=== PATIENT | male | born 2000 | race Caucasian/White ===

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

== ENCOUNTER 2021-01-21 19:14 | Inpatient (IN) | payer BC, OTHER ==
[~2021-01-21] VITALS: Ht 182.9 cm; Wt 60.2 kg
[~2021-01-21 19:14] MED LIST changes: -MELA3TAB12 PO; +MELA3TAB43 PO
[2021-01-21] MEDS ORDERED: IV RINGERS,LACTATED 1000ML 1,000 ML IV SCH (19:30)
[2021-01-21] MEDS ORDERED: cloNIDine HCL 0.1 MG TABLET PO ONE (19:30)
[2021-01-21] MEDS ORDERED: NALOXONE 2 MG/2 ML DISP.SYRIN. IV ONE (19:30)
[2021-01-21] MEDS ORDERED: NALOXONE 2 MG/2 ML DISP.SYRIN. ONE (19:30)
[2021-01-21 19:32] LABS: BASO # 0.2 x10^3/uL (0.0-0.2); BASO % 1 % (0-3); EOS % 0 % (0-3); HEMATOCRIT 44.3 % (39.0-53.0); HEMOGLOBIN 14.4 g/dL (13.0-17.5); LYMPH # 5.5 x10^3/uL (1.0-4.8); LYMPH % 22 % (24-48); MEAN CORPUSCULAR HEMOGLOBIN 30 pg (25-35); MEAN CORPUSCULAR HGB CONC 33 g/dL (31-37); MEAN CORPUSCULAR VOLUME 92 fL (79-100); MONO % 4 % (0-9); NEUT # 17.9 x10^3/uL (1.8-7.7); NEUT % 73 % (31-73); PLATELET COUNT 325 x10^3/uL (140-400); RED BLOOD COUNT 4.81 x10^6/uL (4.30-5.70); RED CELL DISTRIBUTION WIDTH 14.3 % (11.5-14.5); WHITE BLOOD COUNT 24.5 x10^3/uL (4.0-11.0)
--- NOTE | 2021-01-21 19:38 | PHYS DOC ---
Past Medical History Past Medical History: Anxiety, Depression Additional Past Medical Histor: ADD/ODD/Seperation Anxiety, Autism Spectrum Past Surgical History: No Surgical History Smoking Status: Light Tobacco Smoker Alcohol Use: None Drug Use: None General Adult EDM: Chief Complaint: OVERDOSE HPI: HPI: 20-year-old male with a history of opiate abuse presents the emergency department after an accidental overdose of an unknown amount of Percocet around 6 PM this evening. Patient states that he only took Percocet. Denies any further intoxicants. Patient was reportedly 54% on room air and had slow respirations consistent with his opioid toxicity. he was given 4 mg of Narcan in the field intranasally without effect, he was then given 1 mg of Narcan IV around 1850 with good effect on respirations. Secondary to the patient's clinical condition, he is a poor historian at this time. Review of Systems: Review of Systems: ROS is impossible to obtain secondary to the patient's critical condition Heart Score: C/O Chest Pain: No Family History: Family History: non contributory Current Medications: Current Medications Medications (Trade) Dose Ordered Sig/Alex Start Time Stop Time Status Last Admin Dose Admin Clonidine HCl (Catapres) 0.1 mg 1X ONCE 01/21/21 19:30 01/21/21 19:31 Naloxone HCl (NARCAN 2mg SYRINGE) 2 mg STK-MED ONCE 01/21/21 19:30 01/21/21 19:30 DC Ringer's Solution 1,000 ml @ 1,000 mls/hr Q1H 01/21/21 19:30 01/21/21 20:29 Allergies: Allergies: Allergies Coded Allergies Type Severity Reaction Last Updated Verified No Known Drug Allergies 05/14/13 No Physical Exam: PE: Constitutional: Drowsy appearing, slow respirations. Trembling. HENT:pupils 4 mm and reactive Eyes: PERRLA, EOMI, conjunctiva normal, no discharge. Neck: Normal range of motion, supple, no stridor. Cardiovascular: Tachycardic, 2+ radial pulses Lungs & Thorax: No respiratory distress, symmetrical expansion. Bilateral breath sounds clear to auscultation Abdomen: Soft, no tenderness Skin: Warm, dry. Extremities: No tenderness, no cyanosis, ROM intact, no edema. Cold extremities. Neurologic: Normal motor function, normal sensory function, no focal deficits noted. Non ataxic gait. GCS 13. Current Patient Data: Labs: Laboratory Tests Test 01/21/21 19:20 01/21/21 21:15 White Blood Count 24.5 x10^3/uL (4.0-11.0) Red Blood Count 4.81 x10^6/uL (4.30-5.70) Hemoglobin 14.4 g/dL (13.0-17.5) Hematocrit 44.3 % (39.0-53.0) Mean Corpuscular Volume 92 fL (79-100) Mean Corpuscular Hemoglobin 30 pg (25-35) Mean Corpuscular Hemoglobin Concent 33 g/dL (31-37) Red Cell Distribution Width 14.3 % (11.5-14.5) Platelet Count 325 x10^3/uL (140-400) Neutrophils (%) (Auto) 73 % (31-73) Lymphocytes (%) (Auto) 22 % (24-48) Monocytes (%) (Auto) 4 % (0-9) Eosinophils (%) (Auto) 0 % (0-3) Basophils (%) (Auto) 1 % (0-3) Neutrophils # (Auto) 17.9 x10^3/uL (1.8-7.7) Lymphocytes # (Auto) 5.5 x10^3/uL (1.0-4.8) Monocytes # (Auto) 1.0 x10^3/uL (0.0-1.1) Eosinophils # (Auto) 0.0 x10^3/uL (0.0-0.7) Basophils # (Auto) 0.2 x10^3/uL (0.0-0.2) Segmented Neutrophils % 64 % (35-66) Band Neutrophils % 5 % (0-9) Lymphocytes % 25 % (24-48) Monocytes % 5 % (0-10) Metamyelocytes % 1 % (0-0) Platelet Estimate Adequate (ADEQUATE) Sodium Level 141 mmol/L (136-145) Potassium Level 4.0 mmol/L (3.5-5.1) Chloride Level 96 mmol/L (98-107) Carbon Dioxide Level 21 mmol/L (21-32) Anion Gap 24 (6-14) Blood Urea Nitrogen 14 mg/dL (8-26) Creatinine 1.5 mg/dL (0.7-1.3) Estimated GFR (Cockcroft-Gault) 59.7 BUN/Creatinine Ratio 9 (6-20) Glucose Level 303 mg/dL (70-99) Calcium Level 9.2 mg/dL (8.5-10.1) Total Bilirubin 0.3 mg/dL (0.2-1.0) Aspartate Amino Transf (AST/SGOT) 39 U/L (15-37) Alanine Aminotransferase (ALT/SGPT) 30 U/L (16-63) Alkaline Phosphatase 75 U/L (46-116) Total Protein 9.0 g/dL (6.4-8.2) Albumin 5.0 g/dL (3.4-5.0) Albumin/Globulin Ratio 1.3 (1.0-1.7) Salicylates Level 3.3 mg/dL (2.8-20.0) Salicylate Last Dose Date Salicylate Last Dose Time Acetaminophen Level < 2 mcg/ml (10-30) Acetaminophen Last Dose Date Acetaminophen Last Dose Time Ethyl Alcohol Level < 10 mg/dL (0-10) SARS-CoV-2 Antigen (Rapid) Negative (NEGATIVE) Vital Signs: Vital Signs Date Time Temp Pulse Resp B/P (MAP) Pulse Ox O2 Delivery O2 Flow Rate FiO2 01/21/21 19:14 97.4 107 16 151/60 (90) 100 Nasal Cannula 2.0 97.4 Radiology/Procedures: Radiology/Procedures: PROCEDURE: PORTABLE CHEST 1V XR CHEST 1V CLINICAL INDICATIONS: Reason: hypoxic / Spl. Instructions: / History: COMPARISON: None available. Findings: No acute lung infiltrate or pleural effusion or pulmonary edema or lung mass or pneumothorax is seen. The heart size, pulmonary vasculature, mediastinum and both zach are unremarkable. IMPRESSION: No acute radiographic abnormality is seen. Electronically signed by: Zohaib Chávez MD (01/21/2021 8:19 PM) Course & Med Decision Making: Course & Med Decision Making Patient was given 1 mg of Narcan IV in the ED with good improvement for about 5 minutes, the patient then began to get more drowsy, lethargic and slowed his respirations. He remained with good O2 sats on nasal cannula. Decision was made to start a Narcan drip. First acetaminophen level was negative, but we will obtain a 4-hour level due to his unknown Percocet ingestion. Patient will be admitted to the ICU under Dr. Kauffman. Critical care time was 45 minutes which includes time at bedside, frequent reassessments, critical illness management, spent in discussion of patient's care with specialists and/or family members, with interpretation of laboratory and/or radiological studies and is exclusive of procedures. My Orders - KEERTHI HOLT DO Procedure Category Date Status Time Cbc W Autodiff LAB 01/21/21 In Process 19:19 Comprehensive LAB 01/21/21 Complete Metabolic Panel 19:19 Ethanol LAB 01/21/21 Complete 19:19 Drugs Of Abuse Ur LAB 01/21/21 Logged 19:19 Portable Chest 1v RAD 01/21/21 Taken 19:19 Iv Ringers,Lactated PHA 01/21/21 In Process 1000ml (Iv Lactated 19:30 Acetaminophen LAB 01/21/21 Complete 19:19 Salicylate LAB 01/21/21 Complete 19:19 Clonidine Hcl PHA 01/21/21 Complete (Catapres) 19:30 Sars Cov2 (Jenna) LAB 01/21/21 Logged 19:24 Sars Antigen Megha Rapid LAB 01/21/21 Logged 19:24 Naloxone 2mg Syringe PHA 01/21/21 Complete (Narcan 2mg Syringe 19:30 Manual Differential LAB 01/21/21 In Process 19:20 Naloxone 2mg Syringe PHA 01/21/21 In Process (Narcan 2mg Syringe 20:00 Acetaminophen LAB 01/21/21 Logged 22:00 Er Bridge Order ADT 01/21/21 Transmitted 20:06 Code Status CODE 01/21/21 Transmitted 20:06 Vital Signs, Per Unit CLARIBEL 01/21/21 In Process Protocol 20:06 Nothing By Mouth DIET 01/22/21 Transmitted Breakfast Bedrest CLARIBEL 01/21/21 In Process 20:06 Cbc W Autodiff LAB 01/22/21 Verified 06:00 Basic Metabolic Panel LAB 01/22/21 Verified 06:00 Ondansetron Pf PHA 01/21/21 Logged (Zofran) 20:15 Fuel Cell Systems Engineer CLARIBEL 01/21/21 In Process 20:06 Vital Signs Q4h CLARIBEL 01/21/21 In Process 20:06 Departure Departure Impression: Primary Impression: Opioid overdose Additional Impression: Hypoxia Disposition: ADMITTED INPATIENT (ICU) Admitting Physician: SEVERO (Jamari) Condition: CRITICAL Referrals: KRUNAL ORELLANA MD (PCP) KEERTHI HOLT DO Jan 21, 2021 19:38
[2021-01-21 19:45] LABS: CALCIUM 9.2 mg/dL (8.5-10.1); CREATININE 1.5 mg/dL (0.7-1.3); GFR 59.7
[2021-01-21 19:49] LABS: ACETAMIN < 2 mcg/ml (10-30); ETHANOL < 10 mg/dL (0-10); SALIC 3.3 mg/dL (2.8-20.0)
[2021-01-21 19:50] LABS: ALBUMIN/GLOBULIN RATIO 1.3 (1.0-1.7); TOTAL BILIRUBIN 0.3 mg/dL (0.2-1.0)
[2021-01-21] MEDS ORDERED: NALOXONE 2mg SYRINGE 4 MG in IV NORMAL SALINE 250ML 250 ML IV PRN (20:00)
--- NOTE | 2021-01-21 20:03 | PDOC1 ---
History and Physical Date of Service: DOS: DATE: 01/21/21 TIME: 20:03 Chief Complaint: Problems: (1) Hypoxia (2) Opioid overdose Chief Complain: Overdose History of Present Illness: HPI: HPI from ED 20-year-old male with a history of opiate abuse presents the emergency department after an accidental overdose of an unknown amount of Percocet around 6 PM this evening. Patient states that he only took Percocet. Denies any further intoxicants. Patient was reportedly 54% on room air and had slow res pirations consistent with his opioid toxicity. he was given 4 mg of Narcan in the field intranasally without effect, he was then given 1 mg of Narcan IV around 1850 with good effect on respirations. Secondary to the patient's clinical condition, he is a poor historian at this time. I evaluated the patient he was more alert but still somewhat lethargic. Still prefer to monitor in ICU. He however was able to reports to me that this overdose was not intentional. He thought he was taking just Percocet but thinks it was laced with fentanyl. Denying any suicidal or homicidal ideation Past Medical/Surgical History: PMH/PSH: Anxiety depression ADD Allergies: Allergies: Coded Allergies: No Known Drug Allergies (Unverified , 05/14/13) Family History: Family History: Review with patient no known Social History: Social History: Occasional tobacco use denies alcohol use. He abuses opioids Current Medications: Current Medications Current Medications Ringer's Solution 1,000 ml @ 1,000 mls/hr Q1H IV Last administered on 01/21/21at 19:35; Start 01/21/21 at 19:30; Stop 01/21/21 at 20:29 Clonidine HCl (Catapres) 0.1 mg 1X ONCE PO ; Start 01/21/21 at 19:30; Stop 01/21/21 at 19:31; Status DC Naloxone HCl (NARCAN 2mg SYRINGE) 1 mg 1X ONCE IV Last administered on 01/21/21at 19:37; Start 01/21/21 at 19:30; Stop 01/21/21 at 19:31; Status DC Naloxone HCl (NARCAN 2mg SYRINGE) 2 mg STK-MED ONCE .ROUTE ; Start 01/21/21 at 19:30; Stop 01/21/21 at 19:30; Status DC Naloxone HCl 4 mg/ Sodium Chloride 254 ml @ 0 mls/hr CONT PRN IV PER PROTOCOL; Start 01/21/21 at 20:00; Status UNV Active Scripts Active Reported Trileptal (Oxcarbazepine) 600 Mg Tablet 1 Tab PO HS Trileptal (Oxcarbazepine) 300 Mg Tablet 1 Tab PO Q AM Melatonin 3 Mg Tab.rapdis 1 Tab PO HS Focalin (Dexmethylphenidate Hcl) 10 Mg Tablet 1 Tab PO Q AM Kapvay (Clonidine Hcl) 0.1 Mg Tab.er.12h 1 Tab PO BID ROS: Review of Systems Review of System Unless noted in HPI 14 point review of systems was negative Physical Exam: Vital Signs: Vital Signs Date Time Temp Pulse Resp B/P (MAP) Pulse Ox O2 Delivery O2 Flow Rate FiO2 01/21/21 19:14 97.4 107 16 151/60 (90) 100 Nasal Cannula 2.0 97.4 Physcial Exam: GEN: No apparent distress. Alert and oriented HEENT: Normal cephalic, atraumatic, external auditory canals are patent EYES: Extraocular muscles are intact, pupil are equally round and reactive to light and accommodation MUSCULOSKELETAL: Well developed , well nourished, good range of motion ENDOCRINE: No thyromegaly was palpated LYMPHATICS: No cervical chain or axillary nodes were noted HEMATOPOIETIC: No bruising NECK: Supple, no JVD, no thyromegaly was noted LUNGS: Clear to auscultation in all lung reid without rhonchi or wheezing HEART: RRR, S!, S2 present. Peripheral pulses intact, no obvious murmurs noted ABDOMEN: Soft, nontender. Positive bowel sounds, no organomegaly, normal bowel sounds EXTREMITIES: Without clubbing, cyanosis, or edema. Pedal pulses intact. Ne gative Homans sign NEUROLOGIC: Normal speech and tone. A&O x 3, moves all extremities, no obvious focal deficits PSYCHIATRIC: Normal affect, normal mood. Stable SKIN: No ulcerations or rashes, good skin turgor, no jaundice VASCULAR: Good capillary refill, neurovascular bundle appears to be intact Labs: Labs: Laboratory Tests Test 01/21/21 19:20 White Blood Count 24.5 x10^3/uL (4.0-11.0) Red Blood Count 4.81 x10^6/uL (4.30-5.70) Hemoglobin 14.4 g/dL (13.0-17.5) Hematocrit 44.3 % (39.0-53.0) Mean Corpuscular Volume 92 fL (79-100) Mean Corpuscular Hemoglobin 30 pg (25-35) Mean Corpuscular Hemoglobin Concent 33 g/dL (31-37) Red Cell Distribution Width 14.3 % (11.5-14.5) Platelet Count 325 x10^3/uL (140-400) Neutrophils (%) (Auto) 73 % (31-73) Lymphocytes (%) (Auto) 22 % (24-48) Monocytes (%) (Auto) 4 % (0-9) Eosinophils (%) (Auto) 0 % (0-3) Basophils (%) (Auto) 1 % (0-3) Neutrophils # (Auto) 17.9 x10^3/uL (1.8-7.7) Lymphocytes # (Auto) 5.5 x10^3/uL (1.0-4.8) Monocytes # (Auto) 1.0 x10^3/uL (0.0-1.1) Eosinophils # (Auto) 0.0 x10^3/uL (0.0-0.7) Basophils # (Auto) 0.2 x10^3/uL (0.0-0.2) Sodium Level 141 mmol/L (136-145) Potassium Level 4.0 mmol/L (3.5-5.1) Chloride Level 96 mmol/L (98-107) Carbon Dioxide Level 21 mmol/L (21-32) Anion Gap 24 (6-14) Blood Urea Nitrogen 14 mg/dL (8-26) Creatinine 1.5 mg/dL (0.7-1.3) Estimated GFR (Cockcroft-Gault) 59.7 BUN/Creatinine Ratio 9 (6-20) Glucose Level 303 mg/dL (70-99) Calcium Level 9.2 mg/dL (8.5-10.1) Total Bilirubin 0.3 mg/dL (0.2-1.0) Aspartate Amino Transf (AST/SGOT) 39 U/L (15-37) Alanine Aminotransferase (ALT/SGPT) 30 U/L (16-63) Alkaline Phosphatase 75 U/L (46-116) Total Protein 9.0 g/dL (6.4-8.2) Albumin 5.0 g/dL (3.4-5.0) Albumin/Globulin Ratio 1.3 (1.0-1.7) Salicylates Level 3.3 mg/dL (2.8-20.0) Salicylate Last Dose Date Salicylate Last Dose Time Acetaminophen Level < 2 mcg/ml (10-30) Acetaminophen Last Dose Date Acetaminophen Last Dose Time Ethyl Alcohol Level < 10 mg/dL (0-10) Laboratory Tests Test 01/21/21 19:20 White Blood Count 24.5 x10^3/uL (4.0-11.0) Red Blood Count 4.81 x10^6/uL (4.30-5.70) Hemoglobin 14.4 g/dL (13.0-17.5) Hematocrit 44.3 % (39.0-53.0) Mean Corpuscular Volume 92 fL (79-100) Mean Corpuscular Hemoglobin 30 pg (25-35) Mean Corpuscular Hemoglobin Concent 33 g/dL (31-37) Red Cell Distribution Width 14.3 % (11.5-14.5) Platelet Count 325 x10^3/uL (140-400) Neutrophils (%) (Auto) 73 % (31-73) Lymphocytes (%) (Auto) 22 % (24-48) Monocytes (%) (Auto) 4 % (0-9) Eosinophils (%) (Auto) 0 % (0-3) Basophils (%) (Auto) 1 % (0-3) Neutrophils # (Auto) 17.9 x10^3/uL (1.8-7.7) Lymphocytes # (Auto) 5.5 x10^3/uL (1.0-4.8) Monocytes # (Auto) 1.0 x10^3/uL (0.0-1.1) Eosinophils # (Auto) 0.0 x10^3/uL (0.0-0.7) Basophils # (Auto) 0.2 x10^3/uL (0.0-0.2) Sodium Level 141 mmol/L (136-145) Potassium Level 4.0 mmol/L (3.5-5.1) Chloride Level 96 mmol/L (98-107) Carbon Dioxide Level 21 mmol/L (21-32) Anion Gap 24 (6-14) Blood Urea Nitrogen 14 mg/dL (8-26) Creatinine 1.5 mg/dL (0.7-1.3) Estimated GFR (Cockcroft-Gault) 59.7 BUN/Creatinine Ratio 9 (6-20) Glucose Level 303 mg/dL (70-99) Calcium Level 9.2 mg/dL (8.5-10.1) Total Bilirubin 0.3 mg/dL (0.2-1.0) Aspartate Amino Transf (AST/SGOT) 39 U/L (15-37) Alanine Aminotransferase (ALT/SGPT) 30 U/L (16-63) Alkaline Phosphatase 75 U/L (46-116) Total Protein 9.0 g/dL (6.4-8.2) Albumin 5.0 g/dL (3.4-5.0) Albumin/Globulin Ratio 1.3 (1.0-1.7) Salicylates Level 3.3 mg/dL (2.8-20.0) Salicylate Last Dose Date Salicylate Last Dose Time Acetaminophen Level < 2 mcg/ml (10-30) Acetaminophen Last Dose Date Acetaminophen Last Dose Time Ethyl Alcohol Level < 10 mg/dL (0-10) Assessment/Plan Assessment/Plan Opiate overdose, history depression anxiety suspect seizure disorder given home meds. -Patient reports accidental overdose of opioids today. Known history of depression anxiety -Denies any suicidal homicidal ideation -No response to nasal Narcan in the field. Responded to IV Narcan. In emergency room concerned patient may need Narcan drip will admit to ICU. Narcan drip ordered if needed -PAT team consult -Home meds resumed as indicated -DVT prophylaxis -Diet as tolerated this patient is now more alert I spent 42 minutes of critical care time on this patient. Justifications for Admission Other Justification CHERI WU MD Jan 21, 2021 20:03
[2021-01-21] MEDS ORDERED: ONDANSETRON PF 4 MG/2 ML VIAL. IVP PRN ×2 (20:15→22:00)
--- NOTE | 2021-01-21 20:22 | RAD ---
XR CHEST 1V CLINICAL INDICATIONS: Reason: hypoxic / Spl. Instructions: / History: COMPARISON: None available. Findings: No acute lung infiltrate or pleural effusion or pulmonary edema or lung mass or pneumothora x is seen. The heart size, pulmonary vasculature, mediastinum and both zach are unremarkable. IMPRESSION: No acute radiographic abnormality is seen. Electronically signed by: Zohaib Chávez MD (01/21/2021 8:19 PM) [id number]
[2021-01-21 20:30] LABS: % BANDS 5 % (0-9); % LYMPHS 25 % (24-48); % METAS 1 % (0-0); % MONOS 5 % (0-10); % SEGS 64 % (35-66); PLT ESTIMATE ADEQUATE (ADEQUATE)
[2021-01-21 21:45] VITALS: BP 117/60
[2021-01-21] MEDS ORDERED: DEXMETHYLPHENIDATE HCL PO SCH (21:45)
[2021-01-21 22:00] VITALS: BP 118/55
[2021-01-21] MEDS ORDERED: CALCIUM CARBONATE 500 MG TAB.CHEW PO PRN (22:00)
[2021-01-21] MEDS ORDERED: ACETAMINOPHEN 325 MG TABLET. PO PRN (22:00)
[2021-01-21] MEDS ORDERED: 0.9 % SODIUM CHLORIDE 10 ML DISP.SYRIN. IV PRN (22:00)
[2021-01-21 22:15] VITALS: BP 118/55
--- NOTE | 2021-01-21 22:22 | NUR ---
admit from ER. Patient was found by friend in backseat of car. He was unable to wake him. EMS called. Narcan given. Narcan repeated in ER. patient is a&ox4. Sitting up answering questions appropriately. patient states he took 2 Percocet which is what he normally takes. After patient was interviewed by police. The concern is patient may have taken fentanyl.
[2021-01-21 22:30] VITALS: BP 108/56
[2021-01-21 22:30] LABS: ACETAMIN < 2 mcg/ml (10-30)
[2021-01-21 23:00] VITALS: BP 100/49
[2021-01-22 01:00] VITALS: BP 102/52
[2021-01-22 03:00] VITALS: BP 105/46
[2021-01-22 04:59] LABS: BASO % 0 % (0-3); EOS % 0 % (0-3); HEMATOCRIT 36.4 % (39.0-53.0); HEMOGLOBIN 12.1 g/dL (13.0-17.5); LYMPH # 2.8 x10^3/uL (1.0-4.8); LYMPH % 20 % (24-48); MEAN CORPUSCULAR HEMOGLOBIN 29 pg (25-35); MEAN CORPUSCULAR HGB CONC 33 g/dL (31-37); MEAN CORPUSCULAR VOLUME 88 fL (79-100); MONO # 0.5 x10^3/uL (0.0-1.1); MONO % 4 % (0-9); NEUT # 10.7 x10^3/uL (1.8-7.7); NEUT % 76 % (31-73); PLATELET COUNT 250 x10^3/uL (140-400); RED BLOOD COUNT 4.11 x10^6/uL (4.30-5.70); RED CELL DISTRIBUTION WIDTH 13.5 % (11.5-14.5); WHITE BLOOD COUNT 14.1 x10^3/uL (4.0-11.0)
[2021-01-22 05:12] LABS: CALCIUM 8.3 mg/dL (8.5-10.1); CREATININE 0.9 mg/dL (0.7-1.3); GFR 107.6; POTASSIUM 3.7 mmol/L (3.5-5.1)
--- NOTE | 2021-01-22 06:18 | PDOC ---
[employer] PROGRESS NOTE Date of Service DOS: DATE: 01/22/21 TIME: 06:13 Chief Complaint Chief Complaint Opiate overdose History depression anxiety Seizure disorder -Patient reports accidental overdose of opioids today. Known history of depression anxiety -Denies any suicidal homicidal ideation -No response to nasal Narcan in the field. Responded to IV Narcan. In emergency room concerned patient may need Narcan drip will admit to ICU. Narcan drip ordered if needed -PAT team consult -Home meds resumed as indicated -DVT prophylaxis -Diet as tolerated this patient is now more alert History of Present Illness History of Present Illness 20-year-old male with a history of opiate abuse presents the emergency department after an accidental overdose of an unknown amount of Percocet around 6 PM this evening. Patient states that he only took Percocet. Denies any further intoxicants. Patient was reportedly 54% on room air and had slow respirations consistent with his opioid toxicity. he was given 4 mg of Narcan in the field intranasally without effect, he was then given 1 mg of Narcan IV around 1849 with good effect on respirations. Secondary to the patient's clinical condition, he is a poor historian at this time. I evaluated the patient he was more alert but still somewhat lethargic. Still prefer to monitor in ICU. He however was able to reports to me that this overdose was not intentional. He thought he was taking just Percocet but thinks it was laced with fentanyl. Denying any suicidal or homicidal ideation. 01/22: Patient breathing comfortably om room air. No complaints this morning. He denies SI or intentional overdose. Denies HI. PAT has been consulted, however I believe patient can be discharged home safely. Greater than 30 minutes spent managing the discharge of this patient. Vitals/I&O Vitals/I&O: Vital Signs Date Time Temp Pulse Resp B/P (MAP) Pulse Ox O2 Delivery O2 Flow Rate FiO2 01/22/21 03:00 71 15 105/46 (65) 98 Room Air 01/22/21 01:00 98.3 98.3 01/21/21 19:14 2.0 I & O 01/21/21 01/21/21 01/22/21 15:00 23:00 07:00 Intake Total 300 ml 200 ml Balance 300 ml 200 ml Physical Exam General: Alert, Cooperative, No acute distress Heart: Regular rate Lungs: Clear Abdomen: Soft, No tenderness Extremities: No clubbing, No cyanosis Skin: No rashes, No breakdown Labs Labs: Laboratory Tests Test 01/21/21 19:20 01/21/21 21:15 01/21/21 22:05 01/22/21 04:40 White Blood Count 24.5 x10^3/uL (4.0-11.0) 14.1 x10^3/uL (4.0-11.0) Red Blood Count 4.81 x10^6/uL (4.30-5.70) 4.11 x10^6/uL (4.30-5.70) Hemoglobin 14.4 g/dL (13.0-17.5) 12.1 g/dL (13.0-17.5) Hematocrit 44.3 % (39.0-53.0) 36.4 % (39.0-53.0) Mean Corpuscular Volume 92 fL (79-100) 88 fL (79-100) Mean Corpuscular Hemoglobin 30 pg (25-35) 29 pg (25-35) Mean Corpuscular Hemoglobin Concent 33 g/dL (31-37) 33 g/dL (31-37) Red Cell Distribution Width 14.3 % (11.5-14.5) 13.5 % (11.5-14.5) Platelet Count 325 x10^3/uL (140-400) 250 x10^3/uL (140-400) Neutrophils (%) (Auto) 73 % (31-73) 76 % (31-73) Lymphocytes (%) (Auto) 22 % (24-48) 20 % (24-48) Monocytes (%) (Auto) 4 % (0-9) 4 % (0-9) Eosinophils (%) (Auto) 0 % (0-3) 0 % (0-3) Basophils (%) (Auto) 1 % (0-3) 0 % (0-3) Neutrophils # (Auto) 17.9 x10^3/uL (1.8-7.7) 10.7 x10^3/uL (1.8-7.7) Lymphocytes # (Auto) 5.5 x10^3/uL (1.0-4.8) 2.8 x10^3/uL (1.0-4.8) Monocytes # (Auto) 1.0 x10^3/uL (0.0-1.1) 0.5 x10^3/uL (0.0-1.1) Eosinophils # (Auto) 0.0 x10^3/uL (0.0-0.7) 0.0 x10^3/uL (0.0-0.7) Basophils # (Auto) 0.2 x10^3/uL (0.0-0.2) 0.0 x10^3/uL (0.0-0.2) Segmented Neutrophils % 64 % (35-66) Band Neutrophils % 5 % (0-9) Lymphocytes % 25 % (24-48) Monocytes % 5 % (0-10) Metamyelocytes % 1 % (0-0) Platelet Estimate Adequate (ADEQUATE) Sodium Level 141 mmol/L (136-145) 137 mmol/L (136-145) Potassium Level 4.0 mmol/L (3.5-5.1) 3.7 mmol/L (3.5-5.1) Chloride Level 96 mmol/L (98-107) 98 mmol/L (98-107) Carbon Dioxide Level 21 mmol/L (21-32) 29 mmol/L (21-32) Anion Gap 24 (6-14) 10 (6-14) Blood Urea Nitrogen 14 mg/dL (8-26) 13 mg/dL (8-26) Creatinine 1.5 mg/dL (0.7-1.3) 0.9 mg/dL (0.7-1.3) Estimated GFR (Cockcroft-Gault) 59.7 107.6 BUN/Creatinine Ratio 9 (6-20) Glucose Level 303 mg/dL (70-99) 85 mg/dL (70-99) Calcium Level 9.2 mg/dL (8.5-10.1) 8.3 mg/dL (8.5-10.1) Total Bilirubin 0.3 mg/dL (0.2-1.0) Aspartate Amino Transf (AST/SGOT) 39 U/L (15-37) Alanine Aminotransferase (ALT/SGPT) 30 U/L (16-63) Alkaline Phosphatase 75 U/L (46-116) Total Protein 9.0 g/dL (6.4-8.2) Albumin 5.0 g/dL (3.4-5.0) Albumin/Globulin Ratio 1.3 (1.0-1.7) Salicylates Level 3.3 mg/dL (2.8-20.0) Salicylate Last Dose Date Salicylate Last Dose Time Acetaminophen Level < 2 mcg/ml (10-30) < 2 mcg/ml (10-30) Acetaminophen Last Dose Date Unk Acetaminophen Last Dose Time Unk Ethyl Alcohol Level < 10 mg/dL (0-10) SARS-CoV-2 Antigen (Rapid) Negative (NEGATIVE) Assessment and Plan Assessmemt and Plan Problems Medical Problems: (1) Hypoxia Status: Acute (2) Opioid overdose Status: Acute Comment Review of Relevant I have reviewed the following items gerda (where applicable) has been applied. Medications: Current Medications Medications (Trade) Dose Ordered Sig/Alex Route PRN Reason Start Time Stop Time Status Last Admin Dose Admin Ringer's Solution 1,000 ml @ 1,000 mls/hr Q1H IV 01/21/21 19:30 01/21/21 20:29 DC 01/21/21 19:35 Naloxone HCl (NARCAN 2mg SYRINGE) 1 mg 1X ONCE IV 01/21/21 19:30 01/21/21 19:31 DC 01/21/21 19:37 Justifications for Admission Other Justification NYASIA CUEVAS MD Jan 22, 2021 06:18
[2021-01-22] MEDS ORDERED: NALOXONE 0.4 MG/ML VIAL. IV PRN (06:30)
[2021-01-22 08:00] VITALS: BP 112/69
[2021-01-22] MEDS ORDERED: ELECTROLYTE (ICU) PROTOCOL. MC SCH (09:00)
[2021-01-22] MEDS ORDERED: cloNIDine HCL 0.1 MG TABLET PO SCH (09:00)
[2021-01-22] MEDS ORDERED: OXcarbazepine 300 MG TABLET PO SCH ×2 (09:00→21:00)
--- NOTE | 2021-01-22 09:08 | PDOC3 ---
Discharge Summary Visit Information Date of Admission: Jan 21, 2021 Date of Discharge: Jan 22, 2021 Final Diagnosis Problems Medical Problems: (1) Hypoxia Status: Acute (2) Opioid overdose Status: Acute Brief Hospital Course Allergies Allergies Coded Allergies Type Severity Reaction Last Updated Verified No Known Drug Allergies 05/14/13 No Vital Signs Vital Signs Date Time Temp Pulse Resp B/P (MAP) Pulse Ox O2 Delivery O2 Flow Rate FiO2 01/22/21 03:00 71 15 105/46 (65) 98 Room Air 01/22/21 01:00 98.3 98.3 01/21/21 19:14 2.0 Lab Results Laboratory Tests Test 01/21/21 19:20 01/21/21 21:15 01/21/21 22:05 01/22/21 04:40 White Blood Count 24.5 x10^3/uL (4.0-11.0) 14.1 x10^3/uL (4.0-11.0) Red Blood Count 4.81 x10^6/uL (4.30-5.70) 4.11 x10^6/uL (4.30-5.70) Hemoglobin 14.4 g/dL (13.0-17.5) 12.1 g/dL (13.0-17.5) Hematocrit 44.3 % (39.0-53.0) 36.4 % (39.0-53.0) Mean Corpuscular Volume 92 fL (79-100) 88 fL (79-100) Mean Corpuscular Hemoglobin 30 pg (25-35) 29 pg (25-35) Mean Corpuscular Hemoglobin Concent 33 g/dL (31-37) 33 g/dL (31-37) Red Cell Distribution Width 14.3 % (11.5-14.5) 13.5 % (11.5-14.5) Platelet Count 325 x10^3/uL (140-400) 250 x10^3/uL (140-400) Neutrophils (%) (Auto) 73 % (31-73) 76 % (31-73) Lymphocytes (%) (Auto) 22 % (24-48) 20 % (24-48) Monocytes (%) (Auto) 4 % (0-9) 4 % (0-9) Eosinophils (%) (Auto) 0 % (0-3) 0 % (0-3) Basophils (%) (Auto) 1 % (0-3) 0 % (0-3) Neutrophils # (Auto) 17.9 x10^3/uL (1.8-7.7) 10.7 x10^3/uL (1.8-7.7) Lymphocytes # (Auto) 5.5 x10^3/uL (1.0-4.8) 2.8 x10^3/uL (1.0-4.8) Monocytes # (Auto) 1.0 x10^3/uL (0.0-1.1) 0.5 x10^3/uL (0.0-1.1) Eosinophils # (Auto) 0.0 x10^3/uL (0.0-0.7) 0.0 x10^3/uL (0.0-0.7) Basophils # (Auto) 0.2 x10^3/uL (0.0-0.2) 0.0 x10^3/uL (0.0-0.2) Segmented Neutrophils % 64 % (35-66) Band Neutrophils % 5 % (0-9) Lymphocytes % 25 % (24-48) Monocytes % 5 % (0-10) Metamyelocytes % 1 % (0-0) Platelet Estimate Adequate (ADEQUATE) Sodium Level 141 mmol/L (136-145) 137 mmol/L (136-145) Potassium Level 4.0 mmol/L (3.5-5.1) 3.7 mmol/L (3.5-5.1) Chloride Level 96 mmol/L (98-107) 98 mmol/L (98-107) Carbon Dioxide Level 21 mmol/L (21-32) 29 mmol/L (21-32) Anion Gap 24 (6-14) 10 (6-14) Blood Urea Nitrogen 14 mg/dL (8-26) 13 mg/dL (8-26) Creatinine 1.5 mg/dL (0.7-1.3) 0.9 mg/dL (0.7-1.3) Estimated GFR (Cockcroft-Gault) 59.7 107.6 BUN/Creatinine Ratio 9 (6-20) Glucose Level 303 mg/dL (70-99) 85 mg/dL (70-99) Calcium Level 9.2 mg/dL (8.5-10.1) 8.3 mg/dL (8.5-10.1) Total Bilirubin 0.3 mg/dL (0.2-1.0) Aspartate Amino Transf (AST/SGOT) 39 U/L (15-37) Alanine Aminotransferase (ALT/SGPT) 30 U/L (16-63) Alkaline Phosphatase 75 U/L (46-116) Total Protein 9.0 g/dL (6.4-8.2) Albumin 5.0 g/dL (3.4-5.0) Albumin/Globulin Ratio 1.3 (1.0-1.7) Salicylates Level 3.3 mg/dL (2.8-20.0) Salicylate Last Dose Date Salicylate Last Dose Time Acetaminophen Level < 2 mcg/ml (10-30) < 2 mcg/ml (10-30) Acetaminophen Last Dose Date Unk Acetaminophen Last Dose Time Unk Ethyl Alcohol Level < 10 mg/dL (0-10) SARS-CoV-2 Antigen (Rapid) Negative (NEGATIVE) Laboratory Tests Test 01/21/21 19:20 01/21/21 21:15 01/21/21 22:05 01/22/21 04:40 White Blood Count 24.5 x10^3/uL (4.0-11.0) 14.1 x10^3/uL (4.0-11.0) Red Blood Count 4.81 x10^6/uL (4.30-5.70) 4.11 x10^6/uL (4.30-5.70) Hemoglobin 14.4 g/dL (13.0-17.5) 12.1 g/dL (13.0-17.5) Hematocrit 44.3 % (39.0-53.0) 36.4 % (39.0-53.0) Mean Corpuscular Volume 92 fL (79-100) 88 fL (79-100) Mean Corpuscular Hemoglobin 30 pg (25-35) 29 pg (25-35) Mean Corpuscular Hemoglobin Concent 33 g/dL (31-37) 33 g/dL (31-37) Red Cell Distribution Width 14.3 % (11.5-14.5) 13.5 % (11.5-14.5) Platelet Count 325 x10^3/uL (140-400) 250 x10^3/uL (140-400) Neutrophils (%) (Auto) 73 % (31-73) 76 % (31-73) Lymphocytes (%) (Auto) 22 % (24-48) 20 % (24-48) Monocytes (%) (Auto) 4 % (0-9) 4 % (0-9) Eosinophils (%) (Auto) 0 % (0-3) 0 % (0-3) Basophils (%) (Auto) 1 % (0-3) 0 % (0-3) Neutrophils # (Auto) 17.9 x10^3/uL (1.8-7.7) 10.7 x10^3/uL (1.8-7.7) Lymphocytes # (Auto) 5.5 x10^3/uL (1.0-4.8) 2.8 x10^3/uL (1.0-4.8) Monocytes # (Auto) 1.0 x10^3/uL (0.0-1.1) 0.5 x10^3/uL (0.0-1.1) Eosinophils # (Auto) 0.0 x10^3/uL (0.0-0.7) 0.0 x10^3/uL (0.0-0.7) Basophils # (Auto) 0.2 x10^3/uL (0.0-0.2) 0.0 x10^3/uL (0.0-0.2) Segmented Neutrophils % 64 % (35-66) Band Neutrophils % 5 % (0-9) Lymphocytes % 25 % (24-48) Monocytes % 5 % (0-10) Metamyelocytes % 1 % (0-0) Platelet Estimate Adequate (ADEQUATE) Sodium Level 141 mmol/L (136-145) 137 mmol/L (136-145) Potassium Level 4.0 mmol/L (3.5-5.1) 3.7 mmol/L (3.5-5.1) Chloride Level 96 mmol/L (98-107) 98 mmol/L (98-107) Carbon Dioxide Level 21 mmol/L (21-32) 29 mmol/L (21-32) Anion Gap 24 (6-14) 10 (6-14) Blood Urea Nitrogen 14 mg/dL (8-26) 13 mg/dL (8-26) Creatinine 1.5 mg/dL (0.7-1.3) 0.9 mg/dL (0.7-1.3) Estimated GFR (Cockcroft-Gault) 59.7 107.6 BUN/Creatinine Ratio 9 (6-20) Glucose Level 303 mg/dL (70-99) 85 mg/dL (70-99) Calcium Level 9.2 mg/dL (8.5-10.1) 8.3 mg/dL (8.5-10.1) Total Bilirubin 0.3 mg/dL (0.2-1.0) Aspartate Amino Transf (AST/SGOT) 39 U/L (15-37) Alanine Aminotransferase (ALT/SGPT) 30 U/L (16-63) Alkaline Phosphatase 75 U/L (46-116) Total Protein 9.0 g/dL (6.4-8.2) Albumin 5.0 g/dL (3.4-5.0) Albumin/Globulin Ratio 1.3 (1.0-1.7) Salicylates Level 3.3 mg/dL (2.8-20.0) Salicylate Last Dose Date Salicylate Last Dose Time Acetaminophen Level < 2 mcg/ml (10-30) < 2 mcg/ml (10-30) Acetaminophen Last Dose Date Unk Acetaminophen Last Dose Time Unk Ethyl Alcohol Level < 10 mg/dL (0-10) SARS-CoV-2 Antigen (Rapid) Negative (NEGATIVE) Brief Hospital Course Mr. Lopez is a 20 old male who presented with: Opiate overdose History depression anxiety Seizure disorder 20-year-old male with a history of opiate abuse presents the emergency department after an accidental overdose of an unknown amount of Percocet around 6 PM this evening. Patient states that he only took Percocet. Denies any further intoxicants. Patient was reportedly 54% on room air and had slow respirations consistent with his opioid toxicity. he was given 4 mg of Narcan in the field intranasally without effect, he was then given 1 mg of Narcan IV around 1850 with good effect on respirations. Secondary to the patient's clinical condition, he is a poor historian at this time. I evaluated the patient he was more alert but still somewhat lethargic. Still prefer to monitor in ICU. He however was able to reports to me that this overdose was not intentional. He thought he was taking just Percocet but thinks it was laced with fentanyl. Denying any suicidal or homicidal ideation. 01/22: Patient breathing comfortably om room air. No complaints this morning. He never required initiation of Narcan drip. He denies SI or intentional overdose. Denies HI. PAT has been consulted, however I believe patient can be discharged home safely. Greater than 30 minutes spent managing the discharge of this patient. Discharge Information Condition at Discharge: Improved Disposition/Orders: D/C to Home Scheduled Clonidine Hcl (Kapvay) 0.1 Mg Tab.er.12h, 1 TAB PO BID, (Reported) Entered as Reported by: JACOBO WARREN on 05/14/132239 Last Action: Converted on 01/21/212134 by CHERI WU MD Dexmethylphenidate Hcl (Focalin) 10 Mg Tablet, 1 TAB PO Q AM, (Reported) Entered as Reported by: JACOBO WARREN on 05/14/132239 Last Action: Converted on 01/21/212134 by CHERI WU MD Melatonin (Melatonin) 3 Mg Tab.rapdis, 1 TAB PO HS, (Reported) Entered as Reported by: JACOBO WARREN on 05/14/132239 Last Action: HELD on 01/21/212134 by CHERI WU MD Oxcarbazepine (Trileptal) 300 Mg Tablet, 1 TAB PO Q AM, (Reported) Entered as Reported by: JACOBO WARREN on 05/14/132239 Last Action: Continued on 01/21/212134 by CHERI WU MD Oxcarbazepine (Trileptal) 600 Mg Tablet, 1 TAB PO HS, (Reported) Entered as Reported by: JACOBO WARREN on 05/14/132239 Last Action: Converted on 01/21/212134 by CHERI WU MD Justicifation of Admission Dx: Justifications for Admission: Justification of Admission Dx: Yes NYASIA CUEVAS MD Jan 22, 2021 09:08
--- NOTE | 2021-01-22 10:42 | NUR ---
SS following for discharge planning. SS reviewed pt chart and discussed with pt RN. Pt is from home and is currently on room air. COVID19 negative. PAT team referral made for overdose. PAT team met with pt and reported that pt has services at the [facility]. Referral for outpatient therapy provided. Pt has DUI charge in [address] and will follow up with required programs. Pt provided with referral to [facility] program for counseling through his insurance. Discharge order on the chart for home with self care. Pt's RN notified.
== END 2021-01-22 10:35 | disposition home or self-care (01) | DRG 917 ==
LOC: ER 19:14 → 1 WEST ICU 19:24
PROVIDERS: ADMIT Student in an Organized Health Care Education/Training Program; ATTEND Student in an Organized Health Care Education/Training Program
DX: T40.2X1A Poisoning by other opioids, accidental (unintentional), initial encounter (principal); G92.9 Unspecified toxic encephalopathy; F11.10 Opioid abuse, uncomplicated; F41.8 Other specified anxiety disorders; G40.909 Epilepsy, unspecified, not intractable, without status epilepticus; F32.A Depression, unspecified; F41.9 Anxiety disorder, unspecified; Z20.822 Contact with and (suspected) exposure to COVID-19; Z87.891 Personal history of nicotine dependence
CPT/HCPCS: 36415; 71045; 80048; 80053; 80329; 85007; 85025; 87426; 96361; 96374; G0480; J2310; J7120; 99291-25; G0378